=== PATIENT | male | born 1980 | race Two or more races ===

== ENCOUNTER 2019-09-25 21:01 | Emergency (ER) | payer OTHER ==
[~2019-09-25] VITALS: Ht 190.5 cm; Wt 95.3 kg
[2019-09-25] MEDS ORDERED: PROAIR HFA8.5 GM (21:10)
[2019-09-25] MEDS ORDERED: MONTELUKAST SODI4 M1 (21:11)
[2019-09-25] MEDS ORDERED: [UNRECOGNIZED DRUG - OTHER] (21:12)
== END 2019-09-25 22:59 | disposition home or self-care (01) ==
LOC: ER 21:01
DX: R06.02 Shortness of breath (principal); F41.8 Other specified anxiety disorders

== ENCOUNTER 2020-09-23 11:41 | Emergency (ER) | payer OTHER ==
[~2020-09-23] VITALS: Ht 193 cm; Wt 93.0 kg
[~2020-09-23 11:41] MED LIST: MONTELUKAST SODI4 M1; PROAIR HFA8.5 GM; [UNRECOGNIZED DRUG - OTHER]
== END 2020-09-23 16:47 | disposition home or self-care (01) ==
LOC: ER 11:41
DX: R53.1 Weakness (principal)

== ENCOUNTER 2021-05-10 08:58 | Emergency (ER) | payer OTHER ==
[~2021-05-10] VITALS: Ht 190.5 cm; Wt 95.3 kg
[2021-05-10] MEDS ORDERED: KETO10TA2 PO (10:39)
[2021-05-10] MEDS ORDERED: NORFLEX100MG PO (10:39)
== END 2021-05-10 10:41 | disposition home or self-care (01) ==
LOC: ER 08:58
DX: M25.511 Pain in right shoulder (principal); M54.2 Cervicalgia

== ENCOUNTER 2021-11-02 10:30 | Emergency (ER) | payer OTHER ==
[~2021-11-02] VITALS: Ht 190.5 cm; Wt 95.3 kg
[~2021-11-02 10:30] MED LIST changes: +KETO10TA2 PO; +NORFLEX100MG PO
[2021-11-02] MEDS ORDERED: NORFLEX100MG PO (15:17)
[2021-11-02] MEDS ORDERED: NABUMETONE750 MG PO (15:17)
== END 2021-11-02 15:39 | disposition home or self-care (01) ==
LOC: ER 10:30
DX: M62.838 Other muscle spasm (principal); M54.2 Cervicalgia

== ENCOUNTER → 2021-11-07 | Emergency (ER) | payer OTHER ==
[~2021-11-07] VITALS: Ht 190.5 cm; Wt 97.5 kg
[~2021-11-07] MED LIST changes: +NABUMETONE750 MG PO
== END | disposition home or self-care (01) ==
LOC: ER 16:54
DX: G44.209 Tension-type headache, unspecified, not intractable (principal); M54.2 Cervicalgia

== ENCOUNTER 2022-05-11 17:59 | Emergency (ER) | payer OTHER ==
[~2022-05-11] VITALS: Ht 190.5 cm; Wt 95.3 kg
== END 2022-05-11 20:49 | disposition home or self-care (01) ==
LOC: ER 17:59
DX: E16.2 Hypoglycemia, unspecified (principal)

== ENCOUNTER 2024-01-08 09:16 | Emergency (ER) | payer OTHER ==
[~2024-01-08] VITALS: Ht 190.5 cm; Wt 97.5 kg
[2024-01-08] MEDS ORDERED: KETOROLAC TROMETHAMINE 60 MG VIAL IM ONE (11:45)
[2024-01-08] MEDS ORDERED: BACLOFEN 10 MG TABLET PO ONE (11:45)
[2024-01-08] MEDS ORDERED: BACLOFEN5 MG PO (13:40)
[2024-01-08] MEDS ORDERED: KETO10TA2 PO (13:40)
== END 2024-01-08 13:44 | disposition home or self-care (01) ==
LOC: ER 09:18
DX: M62.830 Muscle spasm of back (principal); M48.061 Spinal stenosis, lumbar region without neurogenic claudication; Z91.013 Allergy to seafood